=== PATIENT | female | born 1980 | race Hispanic/Latino ===

== ENCOUNTER 2019-06-12 04:02 | Emergency (ER) | payer OTHER, SELFPAY ==
[2019-06-12 04:10] VITALS: BP 129/79; PULSE 72; RESP 15; TEMP 37.1; O2SAT 98; BMI 28.3
--- NOTE | 2019-06-12 04:10 | ED.SKABFB ---
HPI - Skin/Abscess/Foreign Bdy General Chief complaint: Skin/Abscess/Foreign Body Stated complaint: abcess that needs drained Time Seen by Provider: 06/12/19 04:07 Source: patient Mode of arrival: Ambulatory Limitations: no limitations History of Present Illness HPI narrative: This is a 39-year-old female who comes to the emergency department with complaint of pain and swelling of her right labia. Patient states that she primary care 2 days ago for a small painful nodule that she noted over the weekend. She states that the nodule increased in size and became more tender. She saw her provider who put a small amount of topical lidocaine on the area and did an incision and drainage. She states that there was drainage of purulent fluid at that time. Since then she has been doing warm compresses she has also been trying to express more fluid with compression and states that she has had increasing swelling and pain at the site. She became quite uncomfortable had to come in. She has not had any fevers. No abdominal pain or back pain. Pain has not extended to the other side. She has not had any had dish in all drainage. She denies other medical issues. She has had prior knee surgeries. She denies any allergies to medications. Related Data Previous Rx's Medication Instructions Recorded doxycycline hyclate 100 mg PO BID #20 cap 06/12/19 Allergies Allergy/AdvReac Type Severity Reaction Status Date / Time No Known Drug Allergies Allergy Verified 06/12/19 04:22 Review of Systems Review of Systems ROS Unobtainable: All systems reviewed & are unremarkable except as noted in HPI and below Patient History Surgical History Status post knee surgery Social History Smoking Status: Never smoker Exam Narrative Exam Narrative: GENERAL: Alert and oriented x three, well-nourished female in mild to moderate distress. HEENT: Head normocephalic, atraumatic, EOMI, pupils reactive, face symmetric, moist mucous membranes NECK: Supple, full range of motion CARDIOVASCULAR: Regular rate and rhythm without murmurs, rubs or gallops. RESPIRATORY: Breath sounds equal bilaterally, no wheezes rales or rhonchi. ABDOMEN: Soft, nontender. Normoactive bowel sounds all 4 quadrants. No guarding or rebound, rigidity, no mass Female: Patient's right labia is swollen and enlarged compared to the left, patient has induration and erythema extending the entire length, there is a small opening less than 0.5 cm with very minimal purulent fluid on the outer labia approximately midway along the length the labia and approximately a cm from the inner thigh crease. I am not able to express additional fluid with palpation. No vaginal bleeding, no vaginal discharge, binmanual exam is deferred. : No CVA tenderness EXTREMITIES: Normal range of motion, no clubbing or edema. Neurovascularly intact NEUROLOGICAL: Cranial nerves II through XII grossly intact. Moving all extremities SKIN: Warm, dry, no petechiae, no rashes or lesions. Initial Vital Signs Initial Vital Signs: Vital Signs Temperature 98.7 F 06/12/19 04:10 Pulse Rate 72 06/12/19 04:10 Respiratory Rate 15 06/12/19 04:10 Blood Pressure 129/79 06/12/19 04:10 Pulse Oximetry 98 06/12/19 04:10 Procedures Abscess I/D I&D #1: Side (if applicable): right (labia majora.) Local Anesthetic: lidocaine 1% Amount of anesthesia used (mL): 3 Technique: needle aspiration and incised with #11 blade Amount of fluid expressed (mL): 0.25 Irrigation: Yes Packing used?: none Course Orders Ordered: Discontinued Medications Hydrocodone Bitart/Acetaminophen (Vicodin 5/325 Prepack) 1 bottle MISC SEEINSTR ONE Stop: 06/12/19 04:30 Last Admin: 06/12/19 04:39 Dose: 1 bottle Documented by: CAR Doxycycline Hyclate (Vibramycin) 100 mg PO NOW ONE Stop: 06/12/19 04:30 Last Admin: 06/12/19 04:39 Dose: 100 mg Documented by: CAR Ketorolac Tromethamine (Toradol) 30 mg IM NOW ONE Stop: 06/12/19 04:30 Last Admin: 06/12/19 04:39 Dose: 30 mg Documented by: CAR Lidocaine/Sodium Bicarbonate (Buffered Lidocaine 10 Ml Syr) 10 ml INJ NOW ONE Stop: 06/12/19 04:19 Last Admin: 06/12/19 04:22 Dose: 10 ml Documented by: CAR Vital Signs Vital signs: Vital Signs - 8 hr 06/12/19 04:10 Temperature 98.7 F Pulse Rate 72 Respiratory Rate 15 Blood Pressure 129/79 Pulse Oximetry 98 MDM - Skin/Abscess/Foreign Bdy MDM Narrative Medical decision making narrative: Patient's labia is quite indurated, she states she has been compressing the area she may have caused some additional inflammation and issues. We did incise the area of able to insert a Q-tip only about 0.5 cm in depth maximally, patient with irrigation had minimal amount of purulent drainage there was a small amount at the opening but no additional. There is none expressed with palpation in addition. Patient and I discussed she may be developing a cellulitis and was started on oral doxycycline. She is given a dose Toradol here in the department and a prepack for [place] for the next day. Asked to continue antibiotics. She did have a culture taken his primary care office and asked to follow up with them in the short term if she has worsening or cannot follow-up to return for re-evaluation if she is not having improvement. Discussed return precautions and patient feels comfortable with this plan. Discharge Plan Departure Patient Disposition: Home Clinical Impression: Abscess of right genital labia Cellulitis Qualifiers: Laterality: right Discharge Date/Time: 06/12/19 05:03 Instructions: DI for Cellulitis -- Adult Activity Restrictions/Additional Instructions: Follow-up in the next 24-48 hours for recheck if you are not having improvement in her symptoms. Take oral antibiotics once daily until completely gone. You may take pain medication 1 tablet every 6 hours as needed for pain, this medication can make you sleepy do not drive, perform hazardous activities or make any major decisions while taking this medication. You may also take ibuprofen up to 800 mg every 8 hours with this medication. I would recommend to continue warm compresses to the affected area 3-4 times daily. Return for fevers greater 100.4 F, worsening swelling, worsening pain, abdominal pain, increasing purulent drainage, bleeding, redness or swelling that is worsening or spreading or other new or concerning symptoms. Prescriptions: New doxycycline hyclate 100 mg capsule 100 mg PO BID Qty: 20 RF: 0
[2019-06-12] MEDS: LIDO 1%/SOD BICARB 8.4% (10ML) 10 ML SYRINGE INJ (04:22)
[2019-06-12] MEDS: DOXYCYCLINE HYCLATE 100 MG TABLET PO (04:39)
[2019-06-12] MEDS: HYDROCODONE/ACET 5/325 PREPACK 1 BOTTLE MISC (04:39)
[2019-06-12] MEDS: KETOROLAC 60 MG/2 ML VIAL 30 MG IM (04:39)
== END 2019-06-12 05:03 | disposition home or self-care (01) ==
PROVIDERS: Emergency Provider Emergency Medicine
DX: N76.4 Abscess of vulva (principal); N76.2 Acute vulvitis
CPT/HCPCS: 10060; 96372; 99283; 99284; J1885

== ENCOUNTER 2019-06-16 15:13 | Emergency (ER) | payer OTHER, SELFPAY ==
[2019-06-16 15:22] VITALS: BP 139/83; PULSE 60; RESP 15; TEMP 37.2; O2SAT 100; BMI 28.3
--- NOTE | 2019-06-16 15:37 | ED_ITS ---
HPI - General Adult General Chief complaint: Urogenital-Female Stated complaint: LABIAL ABSCESS Time Seen by Provider: 06/16/19 15:35 Source: patient Mode of arrival: Ambulatory History of Present Illness HPI narrative: 39-year-old woman presents with increasing right labial abscess. This began approximately a week ago with a small look like devonte follicular abscess that was drained by her primary care physician that cultured and apparen tly grew out staph. It appeared to be healing nicely without any cellulitis so antibiotics were not initiated. Four days ago she noticed that it was again getting worse came to the emergency room and the area was drained again with only a small amount of purulent material returned. She is started on doxycycline with concerns for developing cellulitis. She comes in today after seeing her primary care doctor earlier today with continued worsening symptoms. Her entire right labia majora is edematous, there is a small amount of purulence drainage from the previous I and D site on the external portion of the labia and there is now fullness erythema and tenderness extending up the mons almost to the inguinal canal. She denies any fevers, no vaginal discharge, she has been taking small amounts of hydrocodone to help with the pain and finds that she is unable to stand up straight due to the pain unless she has taken pain medication. Related Data Previous Rx's Medication Instructions Recorded doxycycline hyclate 100 mg PO BID #20 cap 06/12/19 levofloxacin [Levaquin] 750 mg PO DAILY #10 tab 06/16/19 oxycodone-acetaminophen [Percocet] 1 tab PO TID PRN #14 tab 06/16/19 sulfamethoxazole-trimethoprim 1 tab PO BID #20 tab 06/16/19 [Bactrim DS] Allergies Allergy/AdvReac Type Severity Reaction Status Date / Time No Known Drug Allergies Allergy Verified 06/16/19 15:22 Review of Systems Review of Systems Narrative: All systems reviewed and are unremarkable except as noted in HPI and below Patient History Surgical History Status post knee surgery Social History Smoking Status: Never smoker Smoking Status: Never smoker alcohol intake frequency: a few times a month Substance Use Type: does not use Exam Narrative Exam Narrative: General: Healthy appearing, in no acute distress. Able to give a complete and coherent history. Well-nourished well-developed HEENT: Moist mucous membranes, normal sclera with reactive pupils, Neck: No JVD, supple Respiratory: Lungs are clear to auscultation, no wheezing no rales no rhonchi. Full and symmetrical air movement Cardiac: Regular rate and rhythm no murmurs no bruits Abdomen: Soft nontender good bowel tones, no flank pain Skin: Warm and dry, no rashes Neurologic: Grossly neurologically intact with no obvious asymmetries or abnormalities Extremities: No trauma, well perfused Psych: Cooperative, appropriate insight and affect Genitals: Right labia majora significantly indurated with erythema spreading fr om the anterior portion of the labia majora up over the mons toward the inguinal canal. She has inguinal adenopathy on the left side. There is a small amount of purulence coming from previous I&D site. Initial Vital Signs Initial Vital Signs: Vital Signs Temperature 99 F 06/16/19 15:22 Pulse Rate 60 06/16/19 15:22 Respiratory Rate 15 06/16/19 15:22 Blood Pressure 139/83 06/16/19 15:22 Pulse Oximetry 100 06/16/19 15:22 Course Orders Ordered: ED Orders 06/16/19 15:51 CT abdomen pelvis w con Stat 06/16/19 16:15 Complete Blood Count AUTO DIFF Stat Comprehensive Metabolic Panel Stat Lactate (Lactic Acid) Stat 06/16/19 16:35 Blood Culture Stat Hydromorphone HCl (Dilaudid) 0.5 mg IV PRN PRN PRN Reason: Pain, Moderate (4-6) Discontinued Medications Ceftriaxone Sodium/Dextrose (Rocephin) 2 gm in 50 mls @ 100 mls/hr IV NOW ONE Stop: 06/16/19 16:19 Last Infusion: 06/16/19 17:29 Dose: 50 mls/hr Documented by: CTR.VAN Admin: 06/16/19 17:01 Dose: 100 mls/hr Documented by: CTR.VAN Vancomycin HCl/Dextrose (Vancomycin) 1,500 mg in 300 mls @ 200 mls/hr IV NOW ONE Stop: 06/16/19 17:58 Last Admin: 06/16/19 17:33 Dose: 200 mls/hr Documented by: [email or web address] Vancomycin HCl ([facility]com[facility] Per Pharmacy) [facility] Stop: 06/16/19 15:56 Vital Signs Vital signs: Vital Signs - 8 hr 06/16/19 15:22 06/16/19 16:15 06/16/19 17:38 Temperature 99 F 98.0 F Pulse Rate 60 58 L 50 L Respiratory Rate 15 16 14 Blood Pressure 139/83 Blood Pressure [Left Arm] 111/72 110/63 Pulse Oximetry 100 100 100 Medical Decision Making Medical Records Medical records reviewed: Yes I reviewed the patient's medical records. Lab Data Lab results reviewed: Yes I reviewed the patient's lab results. Lab results narrative: I am working to find the staff culture that was done initially for sensitivities. Result diagrams: 06/16/19 16:15 06/16/19 16:15 Labs: Lab Results 06/16/19 06/16/19 06/16/19 Range/Units 16:15 16:15 16:15 WBC 12.3 H (4.5-11.0) X10^3/uL RBC 3.82 L (4.0-5.2) X10^6/uL Hgb 11.4 L (12.0-16.0) g/dL Hct 34.9 L (36-46) % MCV 91.4 (80-100) fL MCH 29.9 (26-34) PG MCHC 32.7 (30-36) % RDW 12.9 (11.6-14.8) % Plt Count 312 (150-400) X10^3/uL Neut % (Auto) 74.5 (50-75) % Lymph % (Auto) 15.4 L (25-40) % [place] % (Auto) 7.6 (3-14) % Eos % (Auto) 2.0 (2-4) % Baso % (Auto) 0.5 (0-2) % Neut # (Auto) 9100 H (8442-4718) /uL Lymph # (Auto) 1900 (2114-2650) /uL [place] # (Auto) 900 (0-900) /uL Eos # (Auto) 200 (0-450) /uL Baso # (Auto) 100 (0-100) /uL Sodium 137 (137-145) mmol/L Potassium 3.4 (3.4-5.1) mmol/L Chloride 99 (98-107) mmol/L Carbon Dioxide 27 (22-32) mmol/L BUN 9 (7-17) mg/dL Creatinine 0.83 (0.52-1.04) mg/dL Estimated GFR > 60.0 (>60) mL/min BUN/Creatinine Ratio 10.8 (6-22) Glucose 98 (70-100) mg/dL Lactate 0.8 (0.7-2.1) mmol/L Calcium 9.1 (8.4-10.2) mg/dL Total Bilirubin 0.5 (0.2-1.3) mg/dL AST 79 H (14-36) IU/L ALT 217 H (<35) IU/L Alkaline Phosphatase 192 H (38-126) U/L Total Protein 7.4 (6.3-8.2) g/dL Albumin 4.1 (3.5-5.0) g/dL Globulin 3.3 (1.7-4.1) g/dL Albumin/Globulin Ratio 1.2 (1.0-2.8) Point of Care Testing Test Results Negative Urine Dip Bedside Urine Glucose Negative Bedside Urine Bilirubin - Negative Bedside Urine Ketone - Negative Urine Specific [place] 1.015 Bedside Urine Occult Blood + Bedside Urine pH 6.0 Bedside Urine Protein - Negative Bedside Urine Urobilinogen - Negative Bedside Urine Nitrite - Negative Bedside Urine Leukocytes - Negative Esterase Point of care testing: Point of Care Testing Test Results Negative Urine Dip Bedside Urine Glucose Negative Bedside Urine Bilirubin - Negative Bedside Urine Ketone - Negative Urine Specific [place] 1.015 Bedside Urine Occult Blood + Bedside Urine pH 6.0 Bedside Urine Protein - Negative Bedside Urine Urobilinogen - Negative Bedside Urine Nitrite - Negative Bedside Urine Leukocytes - Negative Esterase Imaging Data CT scan - abdomen/pelvis: Radiologist's Impression: IMPRESSION: Soft tissue swelling with soft tissue fluid can be seen involving the right labia majora and the mons pubis, with surrounding inflammatory changes. There i s no well-defined fluid collection seen to confirm an abscess. This is attributed to advanced phlegmon with surrounding cellulitis. If there is strong clinical concern for a developing abscess, then please consider a dedicated repeat CT of the pelvis with IV contrast for a dedicated soft tissue u ltrasound for further evaluation. Incidental note is made of: Normal appendix IUD Dictated by: Terrance Ghosh M.D. on 06/16/2019 at 15:24 MDM Narrative Medical decision making narrative: Labia majora abscess extending to the mons with concern for deeper abscess and more serious infection. Will broaden an tibiotic coverage to ceftriaxone and vancomycin knowing that the original culture was Staph. Case was apparently reviewed with Dr. Lora by the primary care physician. Briefly reviewed with him again on arrival any agrees with initial workup. Culture from June 10 is obtained. It is Staph aureus that is resistant only to penicillin and sensitive to Cipro, clindamycin, erythromycin, Gent, Levaquin, lizinolid, moxifloxacin, oxacillin, rifampin, tetracycline, trimethoprim sulfa, vancomycin 5:35 Dr Lora, reviewed findings labs and CT scan. He will review them independently and talk to the patient to help finalize a discharge plan Discharge Plan Departure Patient Disposition: Home Clinical Impression: Cellulitis Qualifiers: Site of cellulitis: other site Qualified Code(s): L03.818 - Cellulitis of other sites Instructions: DI for Cellulitis -- Adult Activity Restrictions/Additional Instructions: Thank you for coming in today You do have a rather impressive right labial cellulitis however your CT scan does not suggest that there is a significant abscess that needs to be drained at this time. Your labs are reassuring and there is no evidence of sepsis. The bacteria causing this is a methicillin sensitive Staph aureus that is sensitive to almost all antibiotics. In the emergency room you received IV ceftriaxone and IV vancomycin. I am going to suggest that we stop your doxycycline and switch you to Levaquin(for the excellent tissue penetration) and Septra for double coverage given the fairly rapid progression of this abscess. Please feel free to use 1-2 Percocet as needed for pain. Follow-up with your primary care physician as needed. If you are noticing increasing pain, fevers, swelling, draining abscess or any additional findings of concerns please return to the emergency room and I am happy to re-evaluate Prescriptions: New levofloxacin [Levaquin] 750 mg tablet 750 mg PO DAILY Qty: 10 RF: 0 sulfamethoxazole-trimethoprim [Bactrim DS] 800-160 mg tablet 1 tab PO BID Qty: 20 RF: 0 oxycodone-acetaminophen [Percocet] 5-325 mg tablet 1 tab PO TID PRN (Reason: pain) Qty: 14 RF: 0 No Action doxycycline hyclate 100 mg capsule 100 mg PO BID Qty: 20 RF: 0
--- NOTE | 2019-06-16 15:51 | DI.CT.S_ITS ---
PROCEDURE: CT ABDOMEN PELVIS W CON INDICATIONS: Right labial/mons abscess TECHNIQUE: After the administration of intravenous contrast, 5 mm thick sections acquired from the diaphragm to the symphysis. 5 mm coronal and sagittal reformats were acquired. For radiation dose reduction, the following was used: automated exposure control, adjustment of mA and/or kV according to patient size. COMPARISON: None. FINDINGS: Image quality: Excellent. ABDOMEN: Lung bases: Lung bases are clear. Heart size is normal. Solid organs: Liver is normal in size and enhancement. Gallbladder wall does not appear thickened. Biliary system is non dilated. Pancreas enhances normally. Spleen is normal in size and enhancement. No adrenal nodules. Kidneys demonstrate normal size and enhancement, without hydronephrosis. Peritoneum and bowel: Bowel loops demonstrate normal wall thickness and caliber. No free fluid or air. Incidental note is made of a normal-appearing appendix. Nodes and vessels: No retroperitoneal or mesenteric adenopathy by size criteria. Aorta and inferior vena cava are normal in size. Miscellaneous: No ventral hernias. PELVIS: Genitourinary: Bladder wall thickness is normal. An IUD is seen at its expected location. Miscellaneous: Focal soft tissue swelling with surrounding inflammatory change can be seen involving the right labia majora and the right mons pubis. Soft tissue fluid is seen, without a well-defined fluid collection seen. This area of poorly defined fluid measures 6.3 x 1.7 x 4.3 cm. No oleg rim enhancement can be seen. Prominent reactive groin lymph nodes are seen of the right, without oleg enlargement. No inguinal hernias are seen. Bones: No suspicious bony lesions. No vertebral body compression fractures. IMPRESSION: Soft tissue swelling with soft tissue fluid can be seen involving the right labia majora and the mons pubis, with surrounding inflammatory changes. There is no well-defined fluid collection seen to confirm an abscess. This is attributed to advanced phlegmon with surrounding cellulitis. If there is strong clinical concern for a developing abscess, then please consider a dedicated repeat CT of the pelvis with IV contrast for a dedicated soft tissue ultrasound for further evaluation. Incidental note is made of: Normal appendix IUD Dictated by: Terrance Ghosh M.D. on 06/16/2019 at 15:24 Approved by: Terrance Ghosh M.D. on 06/16/2019 at 15:29
[2019-06-16 16:15] VITALS: BP 111/72; PULSE 58; RESP 16; O2SAT 100
[2019-06-16 16:34] LABS: Add Manual Diff / Slide Review NO; Basophils Absolute Auto 100 /uL (0-100); Basophils Percent Auto 0.5 % (0-2); Eosinophils Absolute Auto 200 /uL (0-450); Hematocrit 34.9 % (36-46); Hemoglobin 11.4 g/dL (12.0-16.0); Lymphocytes Absolute Auto 1900 /uL (1100-4500); Lymphocytes Percent Auto 15.4 % (25-40); Mean Corpuscular HGB Conc 32.7 % (30-36); Mean Corpuscular Hemoglobin 29.9 PG (26-34); Mean Corpuscular Volume 91.4 fL (80-100); Monocytes Absolute Auto 900 /uL (0-900); Monocytes Percent Auto 7.6 % (3-14); Neutrophils Absolute Auto 9100 /uL (1500-7000); Neutrophils Percent Auto 74.5 % (50-75); Platelet Count 312 X10^3/uL (150-400); Red Blood Cell Count 3.82 X10^6/uL (4.0-5.2); Red Cell Distribution Width 12.9 % (11.6-14.8); White Blood Cell Count 12.3 X10^3/uL (4.5-11.0)
[2019-06-16 16:44] LABS: Lactate (Lactic Acid) 0.8 mmol/L (0.7-2.1)
[2019-06-16 16:45] LABS: Alanine Aminotransferase 217 IU/L (<35); Albumin 4.1 g/dL (3.5-5.0); Albumin Globulin Ratio 1.2 (1.0-2.8); Alkaline Phosphatase 192 U/L (38-126); Aspartate Aminotransferase 79 IU/L (14-36); BUN Creatinine Ratio 10.8 (6-22); Bilirubin Total 0.5 mg/dL (0.2-1.3); Blood Urea Nitrogen 9 mg/dL (7-17); Calcium 9.1 mg/dL (8.4-10.2); Carbon Dioxide 27 mmol/L (22-32); Chloride 99 mmol/L (98-107); Estimated Glomerular Filt Rate > 60.0 mL/min (>60); Globulin 3.3 g/dL (1.7-4.1); Glucose 98 mg/dL (70-100); HEMOLYSIS < 15 (0-50); Potassium 3.4 mmol/L (3.4-5.1); Sodium 137 mmol/L (137-145); Total Protein 7.4 g/dL (6.3-8.2)
[2019-06-16] MEDS: CEFTRIAXONE 2 GM/50 ML FROZ.PIGGY IV (17:01)
[2019-06-16] MEDS: VANCOMYCIN 1,500 MG/300 ML FROZ.PIGGY 200 MG IV (17:33)
[2019-06-16 17:38] VITALS: BP 110/63; PULSE 50; RESP 14; TEMP 36.7; O2SAT 100
--- NOTE | 2019-06-16 18:00 | PC.NURSE ---
Nurse assisted Dr Lora at bedside to examine pt's wound.Pt tolerated well.IV fluids infusing per IV pump.Site clear without redness, swelling or pain.Pt stable.
[2019-06-16 19:15] VITALS: BP 112/72; PULSE 50; RESP 14; TEMP 36.6; O2SAT 99
== END 2019-06-16 19:15 | disposition home or self-care (01) ==
PROVIDERS: Emergency Provider Emergency Medicine
DX: L03.818 Cellulitis of other sites (principal); N76.4 Abscess of vulva
CPT/HCPCS: 36415; 74177; 80053; 81003; 81025; 83605; 85025; 87040; 96365; 96366; 96367; 99284; J0696; Q9967